=== PATIENT | female | born 1965 | race Caucasian/White ===

== ENCOUNTER → 2017-09-17 | Outpatient (CLI) | payer OTHER, SELFPAY | PROVIDERS: Visit Provider Nurse Practitioner Obstetrics & Gynecology | DX: R92.2 Inconclusive mammogram (principal) | CPT/HCPCS: 76641 ==

== ENCOUNTER → 2018-10-04 16:27 | Outpatient (CLI) | payer BC, SELFPAY ==
--- NOTE | 2018-10-04 16:32 | MM_ITS ---
MM Dig screening mamm BI w/CAD CAD Screening COMPARISON: Digital mammogram with CAD 09/01/2017 and 08/07/2016 INDICATION: There is no personal or family history of breast cancer. There has been previous cyst aspiration left breast TECHNIQUE: Standard CC and MLO images were obtained. R2 CAD reviewed. FINDINGS: There is a markedly dense and heterogenic parenchymal pattern definitely lessening the sensitivity of mammography. There is a possible asymmetric density upper central portion of the left breast recommend patient return for spot compression views and ultrasound for better evaluation. There are no suspicious microcalcifications in either breast. There are couple benign-appearing calcifications in each breast. IMPRESSION: Markedly dense parenchymal pattern with possible developing asymmetric density left breast BI-RADS Category: 0 Need Additional Imaging Evaluation RECOMMENDED FOLLOW-UP: IMM - IMMEDIATE FOLLOW-UP RECOMMENDED (A letter has been sent to the patient regarding results of the study.)
== END ==
PROVIDERS: PCP Nurse Practitioner Obstetrics & Gynecology; Visit Provider Nurse Practitioner Obstetrics & Gynecology
DX: Z12.31 Encounter for screening mammogram for malignant neoplasm of breast (principal)
CPT/HCPCS: 77067

== ENCOUNTER → 2018-10-11 13:01 | Outpatient (POV) | payer BC, SELFPAY | PROVIDERS: Visit Provider Nurse Practitioner Acute Care | DX: Z00.00 Encounter for general adult medical examination without abnormal findings (principal) ==

== ENCOUNTER → 2018-10-11 13:33 | Outpatient (CLI) | payer BC, SELFPAY ==
--- NOTE | 2018-10-11 13:40 | MM_ITS ---
MM Dig mamm DX unilat LT CAD, US breast LT complete INDICATION: Abnormal screening mammogram with asymmetric density ORDERING PHYSICIAN: Terry Cleaning MD PATIENT AGE: 53 years COMPARISON: 10/04/2018, 09/01/2017 TECHNIQUE: Spot compression views mag views and left breast ultrasound FINDINGS: There is some residual nodularity in the deep lateral aspect of the left breast on the cc view similar when compared to multiple previous exams probably due to an area of asymmetric fibroglandular tissue.. There is a small cluster of calcification noted in the upper outer left breast. Calcifications may be slightly more numerous. Recommend 6 month follow-up to confirm stability with mag views Left breast ultrasound: There is a 5 mm cystic nodule at 10:00. Hypoechoic nodules present at 12:00 nonspecific. There is a 3 mm cyst at 1:00. Small nodes are present in the axilla. IMPRESSION: Asymmetric density in the upper outer left breast may correspond to fibroglandular tissue. Probably benign clustered calcifications in the upper outer left breast. Multiple probably benign hypoechoic nodules of left breast seen on ultrasound. Six-month follow-up recommended. Recommend follow-up mammogram with spot compression and mag views and left breast ultrasound in 6 months BI-RADS Category: 3 Probably Benign Finding Short Term Follow-up RECOMMENDED FOLLOW-UP: 6M - 6 MONTH FOLLOW-UP (A letter has been sent to the patient regarding results of the study.)
== END ==
PROVIDERS: Visit Provider Nurse Practitioner Obstetrics & Gynecology
DX: R92.2 Inconclusive mammogram (principal); Z12.11 Encounter for screening for malignant neoplasm of colon
CPT/HCPCS: 76641; 77065; 93005

== ENCOUNTER → 2020-04-25 09:16 | Outpatient (CLI) | payer BC, SELFPAY ==
--- NOTE | 2020-04-25 09:17 | MM_ITS ---
PROCEDURE: MM DIG SCREENING MAMM BI W/CAD Digital Breast Tomosynthesis Included CLINICAL INDICATION: screening xmg There is no personal or family history of breast cancer. There has been a previous cyst aspiration left breast. COMPARISON: [facility] DIG MAMM-SCREEN CALVIN W/CAD from 09/01/2017 [facility] MM Dig screening mamm BI w/CAD from 10/04/2018 [facility] MM Dig mamm DX unilat LT CAD from 10/11/2018 TECHNIQUE: Standard CC and MLO images and 3D Tomosynthesis was obtained. R2 CAD reviewed. FINDINGS: There is a markedly dense and heterogenic parenchymal pattern bilaterally. There are 2 mole markers right breast. There are couple of benign-appearing microcalcifications in each breast. David images are most helpful in this type of dense breast parenchyma and I see no suspicious lesion in either breast. There are no suspicious microcalcifications. IMPRESSION: Stable dense and heterogenic parenchymal pattern with no suspicious lesions seen BI-RAD Category: 2 Benign Finding(s) FOLLOW-UP: 1YR 1 Year Follow-up (A letter has been sent to the patient regarding results of the study.) Dictated Dr. Rakesh Euceda MD 05/03/2020 15:21 Dr. Rakesh Pinzon MD in [place] 05/03/2020 15:21
== END ==
PROVIDERS: PCP Nurse Practitioner Obstetrics & Gynecology; Visit Provider Nurse Practitioner Obstetrics & Gynecology
DX: Z12.31 Encounter for screening mammogram for malignant neoplasm of breast (principal)
CPT/HCPCS: 77063; 77067